=== PATIENT | male | born 1985 | race African-American/Black ===

== ENCOUNTER → 2020-05-02 | Day surgery (SDC) | payer OTHER ==
[~2020-05-02] VITALS: Ht 193 cm; Wt 109.3 kg
[~2020-05-02] MED LIST: GLYCOPYRROLATE 1 MG/5 ML VIAL. ONE; IV RINGERS,LACTATED 1000ML 1,000 ML IV SCH; KETOROLAC 30 MG/ML VIAL. ONE; LIDOCAINE 2% PF 5 ML VIAL. ONE; MIDAZOLAM HCL/PF 2 MG/2 ML VIAL. ONE; NAPR-683 PO; PROPOFOL 10 MG/ML (20ML) VIAL. IV ONE; ceFAZolin 2GM PREMIX 2 GM/50 ML BAG IV ONE; fentaNYL PF VIAL 100 MCG/2 ML VIAL ONE; oxyCODONE/APAP 7.5/325 1 TAB TABLET PO ONE
--- NOTE | 2020-05-02 08:14 | DISCH ---
DISCHARGE INSTRUCTIONS Condition on Discharge Condition on Discharge: Stable Activity After Discharge Activity Instructions for Disc: Other, see below (Nonweightbearing on right foot until incision is healed) Weight Bearing Status after Di: Non weight bearing (Nonweightbearing until incision healed then may weight-bear with a hard soled postoperative shoe) Diet after Discharge Diet after Discharge: Regular Wound Incision Care Wound/Incision Care: Change dressing (May remove dressing in 3 days keep butterfly strips intact) Contacting the DRColin after DC Call your doctor for: If your condition worsens Follow-Up Follow up with: Dr. Haro or Angelina 10 to 14 days LUZ HARO MD May 02, 2020 08:14
--- NOTE | 2020-05-02 09:19 | PDOC4 ---
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 We talked about the possibility of complications including nonhe aling infection nerve or blood vessel damage medical or other anesthetic complications among others. All his questions were answered he wishes to proceed with surgical evaluation and treatment having given informed consent Operative text: Patient was identified procedure verified patient placed in the supine position on the operating table. After adequate amounts of general anes thesia were administered the right lower extremity was prepped and draped in standard sterile fashion with a thigh tourniquet. After timeout was performed patient procedure identified and verified the right lower extremity was exsanguinated by Esmarch bandage tourniquet inflated to 250 mmHg and after fluoroscopic localization a guidewire was placed up the central portion of the right fifth metatarsal shaft. After verification of placement and sizing the screw at a size 70 the proximal entry point was prepared to countersink the screw slightly and cannulated screw placed without incident over the wire obtaining good compression and checked under multiple fluoroscopic views for placement and reduction. Guidewire was then removed there irrigation carried out normal saline solution bleeding points controlled by electrocautery closure accomplished with buried Vicryl suture subcuticular Monocryl Steri-Strips and Mastisol. Sterile dressings were applied toes were noted be warm and pink following deflation of the tourniquet, patient was returned to recovery room in stable condition having tolerated procedure well. Eliazar aquino was present for the procedure assisted in patient positioning prepping draping retraction closure dressings LUZ AVALOS MD May 02, 2020 09:19
[2020-05-02] MEDS: fentaNYL PF VIAL 100 MCG/2 ML VIAL IVP PRN ×2 (09:30→09:41)
[2020-05-02 10:15] VITALS: BP 108/71
== END | disposition home or self-care (01) ==
LOC: SURG 06:34 → EEVIPCON 07:30
PROVIDERS: ATTEND Orthopaedic Surgery
DX: S92.354K Nondisplaced fracture of fifth metatarsal bone, right foot, subsequent encounter for fracture with nonunion (principal); Z79.899 Other long term (current) drug therapy; X58.XXXD Exposure to other specified factors, subsequent encounter
CPT/HCPCS: 28485; A4364; A4930; A6402; A6449; C1713; J0690; J1885; J2250; J2704; J3010; J3490; 76000; A4223; A4452